=== PATIENT | female | born 1990 | race Hispanic/Latino ===

== ENCOUNTER 2019-08-16 08:11 | Emergency (ER) | payer BC, SELFPAY ==
--- NOTE | 2019-08-16 08:52 | ER ---
Nurse's Notes [facility] Name: Lenore Caputo Age: 29 yrs Sex: Female : 1990 Arrival Date: 08/16/2019 Time: 08:12 Bed 6 Private MD: Diagnosis: Foreign Body to Left Auditory Meatus - resolved, Vomiting Presentation: 08/16 08:27 Presenting complaint: Patient states: "I was cleaning out my right ear this morning and hb the cotton came off the qtip and was stuck in my ear, then I felt short of breath and started coughing and then I threw up and the cotton came out my mouth." Now c/o headache, sore throat, and right ear pain 10/22. Transition of care: patient was not received from another setting of care. Onset of symptoms was August 16, 2019. Risk Assessment: Do you want to hurt yourself or someone else? Patient reports no desire to harm self or others. Initial Sepsis Screen: Does the patient meet any 2 criteria? No. Patient's initial sepsis screen is negative. Does the patient have a suspected source of infection? No. Patient's initial sepsis screen is negative. Care prior to arrival: None. 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 - Social history:: Smoking status: Patient/guardian denies using tobacco. - Ebola Screening: : No symptoms or risks identified at this time. Screenin:26 Abuse screen: Denies threats or abuse. Denies injuries from another. Nutritional sv screening: No deficits noted. Tuberculosis screening: No symptoms or risk factors identified. Fall Risk None identified. Assessment: 08:26 General: Appears in no apparent distress. uncomfortable, well groomed, well developed, sv Behavior is calm, cooperative, appropriate for age. Pain: Complains of pain in face and right ear and throat Pain began this morning Is continuous. Neuro: Level of Consciousness is awake, alert, obeys commands, Oriented to person, place, time, situation, Moves all extremities. Full function Gait is steady, Speech is normal. Respiratory: Airway is patent Respiratory effort is even, unlabored, Respiratory pattern is regular, symmetrical. GI: Abdomen is flat, Reports vomiting, after she vomited she noticed the cotton ball in her vomit that she had stuck in her right ear on accident. Derm: Skin is pink, warm \\T\\ dry. Musculoskeletal: Range of motion: intact in all extremities. Vital Signs: 08:29 BP 145 / 99; Pulse 72; Resp 16; Temp 98.3; Pulse Ox 99% on R/A; Weight 70.31 kg; Height hb 5 ft. (152.40 cm); Pain 3/10; 08:29 Body Mass Index 30.27 (70.31 kg, 152.40 cm) hb ED Course: 08:12 Patient arrived in ED. as 08:13 Woody Cain MD is Attending Physician. kdr 08:21 Lilian Ansari RN is Primary Nurse. sv 08:26 Arm band placed on Patient placed in an exam room, on a stretcher. sv 08:26 Patient has correct armband on for positive identification. Bed in low position. Call sv light in reach. Pulse ox on. NIBP on. Door closed. Head of bed elevated. 08:29 Triage completed. hb 08:38 ED physician to see patient. sv 08:44 Lilian Tinoco MD is Referral Physician. kdr 09:00 No provider procedures requiring assistance completed. Patient did not have IV access sv during this emergency room visit. Administered Medications: No medications were administered Outcome: 08:51 Discharge ordered by . kdr 09:01 Discharged to home ambulatory. sv 09:01 Condition: stable 09:01 Discharge instructions given to patient, Instructed on discharge instructions, follow up and referral plans. Demonstrated understanding of instructions, follow-up care. 09:01 Patient left the ED. sv Signatures: Lilian Ansari, FRANNIE KATHLEEN Woody Cain MD MD kdr Glory Mei Heather, RN RN hb
--- NOTE | 2019-08-16 08:52 | EDPHYS ---
Physician Documentation [facility] Name: Lenore Caputo Age: 29 yrs Sex: Female : 1990 Arrival Date: 08/16/2019 Time: 08:12 Bed 6 Private MD: ED Physician Woody Cain HPI: 08/16 08:55 This 29 yrs old Female presents to ER via Ambulatory with complaints of kdr Vomiting, Headache, Ear Pain. 08:56 The patient had put a Q-tip in her right ear and when she pulled it out the cotton tip kdr was missing and she felt that it remained in her ear. She then became nauseated and vomited with a small amount of blood in the emesis. She now has a slight right sided LAWRENCE but o/w feels fine. Onset: The symptoms/episode began/occurred suddenly, just prior to arrival. Severity of symptoms: At their worst the symptoms were mild in the emergency department the symptoms have improved moderately. The patient has not experienced similar symptoms in the past. The patient has not recently seen a physician. 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 - Social history:: Smoking status: Patient/guardian denies using tobacco. - Ebola Screening: : No symptoms or risks identified at this time. ROS: 08:56 Constitutional: Negative for fever, chills, and weight loss, Eyes: Negative for injury, kdr pain, redness, and discharge, Neck: Negative for injury, pain, and swelling, Cardiovascular: Negative for chest pain, palpitations, and edema, Respiratory: Negative for shortness of breath, cough, wheezing, and pleuritic chest pain, Back: Negative for injury and pain, : Negative for injury, bleeding, discharge, and swelling, MS/Extremity: Negative for injury and deformity, Skin: Negative for injury, rash, and discoloration, Neuro: Negative for headache, weakness, numbness, tingling, and seizure activity. Psych: Negative for depression, anxiety, suicide ideation, homicidal ideation, and hallucinations, Allergy/Immunology: Negative for hives, rash, and allergies, Endocrine: Negative for neck swelling, polydipsia, polyuria, polyphagia, and marked weight changes, Hematologic/Lymphatic: Negative for swollen nodes, abnormal bleeding, and unusual bruising. 08:56 Abdomen/GI: Positive for nausea, vomiting. 08:56 Neuro: Positive for headache, Right sided. Exam: 08:56 Constitutional: This is a well developed, well nourished patient who is awake, alert, kdr and in no acute distress. Head/Face: Normocephalic, atraumatic. Eyes: Pupils equal round and reactive to light, extra-ocular motions intact. Lids and lashes normal. Conjunctiva and sclera are non-icteric and not injected. Cornea within normal limits. Periorbital areas with no swelling, redness, or edema. ENT: Nares patent. No nasal discharge, no septal abnormalities noted. Tympanic membranes are normal and external auditory canals are clear. Oropharynx with no redness, swelling, or masses, exudates, or evidence of obstruction, uvula midline. Mucous membranes moist. Neck: Trachea midline, no thyromegaly or masses palpated, and no cervical lymphadenopathy. Supple, full range of motion without nuchal rigidity, or vertebral point tenderness. No Meningismus. Chest/axilla: Normal chest wall appearance and motion. Nontender with no deformity. No lesions are appreciated. Cardiovascular: Regular rate and rhythm with a normal S1 and S2. No gallops, murmurs, or rubs. Normal PMI, no JVD. No pulse deficits. Respiratory: Lungs have equal breath sounds bilaterally, clear to auscultation and percussion. No rales, rhonchi or wheezes noted. No increased work of breathing, no retractions or nasal flaring. Abdomen/GI: Soft, non-tender, with normal bowel sounds. No distension or tympany. No guarding or rebound. No evidence of tenderness throughout. Back: No spinal tenderness. No costovertebral tenderness. Full range of motion. Skin: Warm, dry with normal turgor. Normal color with no rashes, no lesions, and no evidence of cellulitis. MS/ Extremity: Pulses equal, no cyanosis. Neurovascular intact. Full, normal range of motion. Neuro: Awake and alert, GCS 15, oriented to person, place, time, and situation. Cranial nerves II-XII grossly intact. Motor strength 5/5 in all extremities. Sensory grossly intact. Cerebellar exam normal. Normal gait. Psych: Awake, alert, with orientation to person, place and time. Behavior, mood, and affect are within normal limits. Vital Signs: 08:29 BP 145 / 99; Pulse 72; Resp 16; Temp 98.3; Pulse Ox 99% on R/A; Weight 70.31 kg; Height hb 5 ft. (152.40 cm); Pain 3/10; 08:29 Body Mass Index 30.27 (70.31 kg, 152.40 cm) hb MDM: 08:51 Patient medically screened. kdr 08:56 Data reviewed: vital signs, nurses notes. Counseling: I had a detailed discussion with kdr the patient and/or guardian regarding: the historical points, exam findings, and any diagnostic results supporting the discharge/admit diagnosis, the need for outpatient follow up. Administered Medications: No medications were administered Disposition: 08/16/19 08:51 Discharged to Home. Impression: Foreign Body to Left Auditory Meatus - resolved, Vomiting. - Condition is Stable. - Discharge Instructions: Ear Foreign Body, [id number]. - Medication Reconciliation Form, Thank You Letter, Work release form form. - Follow up: Private Physician; When: 2 - 3 days; Reason: If symptoms return, Further diagnostic work-up, Recheck today's complaints, Continuance of care, Re-evaluation by your physician. Follow up: Lilian Tinoco MD; When: 2 - 3 days; Reason: If symptoms return, Further diagnostic work-up, Recheck today's complaints, Continuance of care, Re-evaluation by your physician. - Problem is new. - Symptoms are resolved. Signatures: Lilian Ansari, RN RN Woody Cain MD MD [facility] Lay Lomeli RN RN Corrections: (The following items were deleted from the chart) 09:01 08:51 08/16/2019 08:51 Discharged to Home. Impression: Foreign Body to Left Auditory sv Meatus - resolved, Vomiting. Condition is Stable. Forms are Medication Reconciliation Form, Thank You Letter, Antibiotic Education, Prescription Opioid Use. Follow up: Private Physician; When: 2 - 3 days; Reason: If symptoms return, Further diagnostic work-up, Recheck today's complaints, Continuance of care, Re-evaluation by your physician. Follow up: Lilian Tinoco; When: 2 - 3 days; Reason: If symptoms return, Further diagnostic work-up, Recheck today's complaints, Continuance of care, Re-evaluation by your physician. Problem is new. Symptoms are resolved. kdr
[2019-08-16 09:10] VITALS: BP 145/99; TEMP 98.3; O2SAT 99
== END 2019-08-16 09:01 | disposition home or self-care (01) ==
LOC: ER 08:11
DX: R11.2 Nausea with vomiting, unspecified (principal); R51 Headache
CPT/HCPCS: 99283

== ENCOUNTER 2020-08-13 23:34 | Emergency (ER) | payer SELFPAY ==
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
--- OUTSIDE RECORDS SUMMARY | 2020-08-13 23:37 | XMS REPORT | Summary of Care ---
:1990 Author Organization [facility] Address [address] [place] [id number] Care Team Providers Name Role Phone Pcp, Patient Does Not Have A Primary Care Provider +1-000-00 0-0000 Reason for Visit Reason Comments Letters Encounter Details Date Type Department Care Team Description 07/07/2020 Telephone [facility] Neurosurgery, Zachary Coley MD Letters [id number] [place] [address], [address] [place] [address] [place] [address] [phone] Allergies No Known Allergiesdocumented as of this [...] this encounter Miscellaneous Notes Telephone Encounter - Jazmín Watson FNP - 07/09/2020 9:35 AM CSTSpoke with patient, she is just needing letter stating that she can participate in community service. Patient was lost to follow up in clinic, now scheduled for 07/25. 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 CT cervical spine done 02/29/20. elephone Encounter - Zoe Hawk - 07/07/2020 9:24 AM CSTLenore Caputo is a 30 year old female Lenore Harshal poe requesting a letter needed for to do light work for her to be able to do community service . Patient request a call back to discuss [phone] documented in this encounter Plan of Treatment Date Type Specialty Care Team Description 07/25/2020 Office Visit Neurological Surgery Douglas Juares MD [address] [place] [address] Health Maintenance Due Date Last Done Comments VARICELLA VACCINES (1 of 2 - 2-dose 1992 childhood series) PNEUMOCOCCAL 0-64 YEARS COMBINED SERIES (1 1997 of 3 - PCV13) Depression Screening 2003 DTaP,Tdap,and Td Vaccines (1 - Tdap) 2010 PAP SMEAR 07/09/2012 07/09/2009, 05/20/2008 INFLUENZA VACCINE (#1) 2020 documented as of this encounter Implants Implanted Type Area Radio Broadcaster Device Shelf Model / Identifier Expiration Serial / Lot Date Quintex Hybrid Plate 1 Level 20mm PLATE N/A: Aesculap [id number] / Implanted: Qty: 1 on 01/10/2020 by Benoit Ramírez MD at [facility] Neck N/A / N/A Screw Semiconstrained 4.0x14mm Aesculap #[id number] - Sn/A SCREW N/A: Aesculap [id number] / Implanted: Qty: 4 on 01/10/2020 by Benoit Ramírez MD at [facility] Neck N/A / N/A Spacer Elemax Cortical Cancellous 6mm Rti Surgical Ref #[id number] - [id number] SPACER N/A: [employer] 03/15/2022 [id number] / Implanted: Qty: 1 on 01/10/2020 by Benoit Ramírez MD at [facility] Neck [id number] / [id number] documented as of this encounter Results Not on filedocumented in this encounter Advance Directives Name Relationship Healthcare Agent Relationship Co mmunication Lenore Olson [facility] Health Care Agent [phone] ( Mobile)
--- OUTSIDE RECORDS SUMMARY | 2020-08-13 23:37 | XMS REPORT | Summary of Care ---
:1990 Author [address] [facility] Address [address] [place] [address] Care Team Providers Name Role Phone Pcp, Patient Does Not Have A Primary Care Provider +1-000-00 0-0000 Reason for Referral MRI/CAT Scan (STAT) Status Reason Specialty Diagnoses / Referred By Referred To Procedures Contact Contact New Request Diagnostic Diagnoses Neck pain Fall, initial encounter Qing Guzmán, Radiology Procedures CT CERVICAL SPINE WO CONTRAST PAC [address] [place] [address] [place] [address] Reason for Visit Reason Comments Other "feels like passing out" Auth/Cert Status Reason Specialty Diagnoses / Referred By Referred To Procedures Contact Contact Emergency Medicine [facility] [address] [place] [address] Fax: Encounter Details Date Type Department Care Team Description 07/11/2020 Emergency [facility]-Emergency Qing Guzmán, PAC Dizziness (Primary Dx); Department [address] [place] [address] Neck pain; [address] [place] [address] 7 [phone] Fall, initial encounter Drive [phone] [place] [address] [phone] Allergies No Known Allergiesdocumented as of this [...] Assigned at Date Recorded Not on file COVID-19 Exposure Response Date Recorded In the last month, have you been in contact with No / Unsure 07/11/2020 5:02 PM COMMUNICATION CONSULTANT someone who was confirmed or suspected to have Coronavirus / COVID-19? documented as of this encounter Last Filed Vital Signs Vital Sign Reading Time Taken Comments Blood Pressure 133/97 07/11/2020 5:19 PM COMMUNICATION CONSULTANT Pulse 110 07/11/2020 5:19 PM COMMUNICATION CONSULTANT Temperature 36.6 C (97.9 F) 07/11/2020 5:19 PM COMMUNICATION CONSULTANT Respiratory Rate 20 07/11/2020 5:19 PM COMMUNICATION CONSULTANT Oxygen Saturation 100% 07/11/2020 5:19 PM COMMUNICATION CONSULTANT Inhaled Oxygen Concentration - - Weight 65.8 kg (145 lb) 07/11/2020 5:19 PM COMMUNICATION CONSULTANT Height - - Body Mass Index 29.29 01/07/2020 9:55 PM CDT documented in this encounter Discharge Instructions InstructionsQing Guzmán, PAC - 07/11/2020DIAGNOSIS 1. Dizziness 2. Neck pain NO LIFE-THREATENING FINDINGS ON TODAY'S EXAM. PROCEDURES IN THE ER TODAY: none MEDICATIONS ADMINISTERED IN THE ER TODAY: none YOUR PRESCRIPTIONS AND [id number] MEDICATION RECOMMENDATIONS: none SPECIAL CARE INSTRUCTIONS: Follow up with your neurosurgeon as scheduled for your neck. Avoid caffeine, and drink plenty of clear liquids. Take Tylenol or ibuprofen as needed for muscle soreness. Make an appointment to follow upwith a primary care physician or [facility] for evaluation and treatment of anxiety. Return to the ER if you have new symptoms or develop chest pain, shortness of breath, loss of consciousness or otherconcerning symptoms that you feel like need to be evaluated immediately. FOLLOW-UP RECOMMENDATIONS: RECOMMEND FOLLOW-UP WITH A PRIMARY CARE PROVIDER OR SPECIALIST IN 2-5 DAYS, ESPECIALLY IF NO IMPROVEMENT IN SYMPTOMS. TO FOLLOW-UP WITHIN THE [facility], TRY THESE OPTIONS (CLINIC APPOINTMENTS AVAILABLE ON [id number] BASIS): 1. SCHEDULE AN APPOINTMENT ONLINE AT [email or web address] 2. OR CALL THE [facility]ESS [facility] AT OR 3. OR CALL YOUR [facility] PHYSICIAN'S OFFICE DIRECTLY IF YOU ARE ALREADY AN ESTABLISHED [facility] PATIENT. OR, YOU MAY FOLLOW-UP WITH A PROVIDER OF YOUR CHOICE, SUCH : 1. A PHYSICIAN OF YOUR CHOICE 2. [facility], . LOCATIONS IN [facility] 3. [facility], [address], [place]; [phone] RETURN TO ER FOR WORSENING OF SYMPTOMS. AttachmentsThe following attachments cannot be sent through Care Everywhere. Dizziness, Uncertain Cause (Montserratian)documented in this encounter ED Notes Estrella Cruz RN - 07/11/2020 5:17 PM CSTPatient arrived via [facility] with c/o "feeling like I'm going to pass out" Patient goes on to state "I know I have anxiety but this feels different." Qing Currie PAC - 07/11/2020 5:01 PM COMMUNICATION CONSULTANT [facility] Emergency Department Note Patient Name: Lenore Caputo Date of : 1990 30 year old female Treatment Room: [facility] Primary Care Physician: PATIENT DOES NOT HAVE A PCP Patient Escorted by: Self [9] Mode of Arrival: Personal means [1] EMS Treatment Prior to ED Arrival: Travel and Exposure Screening: Symptoms Does patient have any of these symptoms?: (not recorded) Exposure Screening Has patient had contact with someone with a communicable disease in the last month?: (not recorded) Diseases exposed to:: (not recorded) Is Patient ?: (not recorded) Exposure Date: (not recorded) Chief Complaint: Chief Complaint Patient presents with Other "feels like passing out" History of Present Illness: HPI Past Medical History/Immunizations: No past medical history on file. Allergies: No Known Allergies Past Social History: Substance & Sexual Activity No substance use or sexual activity history on file. Past Surgical History: Past Surgical History: Procedure Laterality Date ANTERIOR CERVICAL FUSION N/A 01/10/2020 Surgeon: Zachary Juares MD; Location: [facility] Review of Systems: Review of Systems Physical Exam: ED Triage Vitals [07/11/20 1719] Weight 65.8 kg (145 lb) Actual or estimated Estimated by patient/family report Height BP (!) 133/97 Pulse 110 Resp 20 Temp 36.6 C (97.9 F) Temp source Oral SpO2 100 % Measured on Room air Physical Exam Radiology: Hospital Encounter on 07/11/20 CT CERVICAL SPINE WO CONTRAST Narrative EXAM: CT CERVICAL SPINE WO CONTRAST ORDERING PHYSICIAN: QING GUZMÁN HISTORY: Neck injury and pain. History of cervical spine fracture. COMPARISON: Report of examination 02/29/2020. Images not available for direct comparison. TECHNIQUE: CT of the cervical spine without IV contrast. Coronal and sagittal reformatted images were obtained. CT performed according to ALARA principles. FINDINGS: Visualization is from the skull base through T2 vertebral body. Anterior fusion at C6-7 with interbody spacer. Hardware appears intact. Again seen is lucency through the left C6 lamina and the inferior left C6 facet likely related to nonunited fractures given the chronicity. Subtle irregularity of the superior left C7 facet likely related to fracture described on previous examination. The left C7 transverse process fracture is not as well seen. Slight widening of the C6-7 facet joint is reportedly stable. The vertebral body height and alignment appear otherwise preserved. There is a reversal of the normal cervical lordosis. No acute cervical spine fracture identified. Disc space height is otherwise preserved. The prevertebral soft tissues are normal. The visualized lung apices are clear. Impression 1. No acute osseous injury in the cervical spine. 2. Stable postoperative changes of anterior fusion at C6-7. Hardware is intact. 3. Stable chronic appearing fractures at C6 and C7 as described. Lucencies in the C6 lamina and inferior C6 facet likely related to nonunited fractures given the chronicity. RL: 3303 End of Report Lab Results (24h): No results found for this or any previous visit (from the past 24 hour(s)). Orders and Treatments: Orders Placed This Encounter Procedures CT CERVICAL SPINE WO CONTRAST No orders of the defined types were placed in this encounter. ED COURSE MDM: Coding Scoring Tools: No data recorded Diagnosis/Impression: ICD-10-CM ICD-9-CM 1. Neck pain M54.2 723.1 2. Fall, initial encounter W19.XXXA E888.9 Disposition/Condition: ED Disposition None Discharge Medications: Patient's Medications START taking these medications No medications on file CONTINUE taking these medications which have NOT CHANGED CYCLOBENZAPRINE 5 MG TABLET Take 1 tablet by mouth 3 (three) times daily as needed for Muscle Spasms. START taking Modified Medications as Prescribed No medications on file STOP taking these medications No medications on file Follow-up: Electronically signed by: MYRIAM Arevalo 07/11/2020 8:42 PM UNICATION CONSULTANT documented in this encounter Miscellaneous Notes ED Nurse Note - Brianna Amaya RN - 07/11/2020 8:56 PM CSTPatient provided discharge instructions, AVS, Return precautions, and told to follow-up with PCP. Patient verbalized understanding of discharge instructions and ambulated out of ED in no acute distress. documented in this encounter Plan of Treatment Date Type Specialty Care Team Description 07/25/2020 Office Visit Neurological Surgery Douglas Juares MD [address] [place] [address] [phone] Health Maintenance Due Date Last Done Comments VARICELLA VACCINES (1 of 2 - 2-dose 1992 childhood series) PNEUMOCOCCAL 0-64 YEARS COMBINED SERIES (1 1997 of 3 - PCV13) Depression Screening 2003 DTaP,Tdap,and Td Vaccines (1 - Tdap) 2010 PAP SMEAR 07/09/2012 07/09/2009, 05/20/2008 INFLUENZA VACCINE (#1) 2020 documented as of this encounter Implants Implanted Type Area Radiologic Technician Device Shelf Model / Identifier Expiration Serial / Lot Date Quintex Hybrid Plate 1 Level 20mm PLATE N/A: Aesculap [id number] / Implanted: Qty: 1 on 01/10/2020 by Benoit Ramírez MD at [facility] Neck N/A / N/A Screw Semiconstrained 4.0x14mm Aesculap #[id number] - Sn/A SCREW N/A: Aesculap [id number] / Implanted: Qty: 4 on 01/10/2020 by Benoit Ramírez MD at [facility] Neck N/A / N/A Spacer Elemax Cortical Cancellous 6mm Rti Surgical Ref #[id number] - [id number] SPACER N/A: [employer] 03/15/2022 [id number] / Implanted: Qty: 1 on 01/10/2020 by Benoit Ramírez MD at [facility] Neck [id number] / [id number] documented as of this encounter Procedures Procedure Name Priority Date/Time Associated Diagnosis Comme nts CT CERVICAL SPINE STAT 07/11/2020 7:20 PM Neck pain Results for this WO CONTRAST COMMUNICATION CONSULTANT Fall, initial procedure are in encounter the results section. NOTICE OF PRIVACY Routine 07/11/2020 5:01 PM PRACTICES COMMUNICATION CONSULTANT documented in this encounter Results CT CERVICAL SPINE WO CONTRAST (07/11/2020 7:20 PM COMMUNICATION CONSULTANT) Specimen Impressions Performed At 1. No acute osseous injury in the cerv ical spine. PACS/VR/DOSE 2. Stable postoperative changes of anter ior fusion at C6-7. Hardware is intact. 3. Stable chronic appearing fractures at C6 and C7 as described. Lucencies in the C6 lamina and inferior C6 facet l ikely related to nonunited fractures given the chronicity. RL: 3301 End of Report Electronically signed by Amarjit Law MD at 8:27 PM Narrative Performed At EXAM: CT CERVICAL SPINE WO CONTRAST PACS/VR/DOSE ORDERING PHYSICIAN: QING GUZMÁN HISTORY: Neck injury and pain. History o f cervical spine fracture. COMPARISON: Report of examination 020. Images not available for direct comparison. TECHNIQUE: CT of the cervical spine with out IV contrast. Coronal and sagittal reformatted images were obtained. CT performe d according to ALARA principles. FINDINGS: Visualization is from the skull base thr ough T2 vertebral body. Anterior fusion at C6-7 with interbody spacer. Hardware appears intact. Again seen is lucency through the left C6 lamina and the inferior left C6 facet likely related to nonunited fractures given the chronicity. S ubtle irregularity of the superior left C7 facet likely related to fracture described on previous examination. The left C7 transverse process fracture i s not as well seen. Slight widening of the C6-7 facet joint is reportedly stable. The vertebral body height and alignment appear otherwi se preserved. There is a reversal of the normal cervical gabriele dosis. No acute cervical spine fracture identified. Disc space heigh t is otherwise preserved. The prevertebral soft tissues are normal . The visualized lung apices are clear. Procedure Note [facility], Radiant Results Inft User - 2019 8:28 PM COMMUNICATION CONSULTANT EXAM: CT CERVICAL SPINE WO CONTRAST ORDERING PHYSICIAN: QING GUZMÁN HISTORY: Neck injury and pain. History o f cervical spine fracture. COMPARISON: Report of examination 020. Images not available for direct comparison. TECHNIQUE: CT of the cervical spine with out IV contrast. Coronal and sagittal reformatted images were obtaine d. CT performed according to ALARA principles. FINDINGS: Visualization is from the skull base thr ough T2 vertebral body. Anterior fusion at C6-7 with interbody spacer. Sanchez rdware appears intact. Again seen is lucency through the left C6 lamina an d the inferior left C6 facet likely related to nonunited fractures given the chronicity. Subtle irregularity of the superior left C7 facet likely relate d to fracture described on previous examination. The left C7 transverse proc ess fracture is not as well seen. Slight widening of the C6-7 facet joint is reportedly stable. The vertebral body height and alignment appear otherwise preserved. There is a reversal of the normal cervical gabriele dosis. No acute cervical spine fracture identified. Disc space height is otherwise preserved. The prevertebral soft tissues are normal . The visualized lung apices are clear. IMPRESSION 1. No acute osseous injury in the cervi vaishnavi spine. 2. Stable postoperative changes of anter ior fusion at C6-7. Hardware is intact. 3. Stable chronic appearing fractures at C6 and C7 as described. Lucencies in the C6 lamina and inferior C6 facet l ikely related to nonunited fractures given the chronicity. RL: 1234 End of Report Performing Organization Address City/State/Zipcode Phone Number PACS/VR/DOSE documented in this encounter Visit Diagnoses Diagnosis Dizziness - Primary Dizziness and giddiness Neck pain Cervicalgia Fall, initial encounter documented in this encounter Advance Directives Name Relationship Healthcare Agent Relationship Co mmunication Lenore Olson Mother Health Care Agent [phone] ( Mobile)
--- OUTSIDE RECORDS SUMMARY | 2020-08-13 23:37 | XMS REPORT | Continuity of Care Document ---
:1990 Author Organization [facility] t Address [address] [place] [address] [address] [place] [address] Care Team Providers Name Role Phone Mattie White Attending Clinician Doctor Unassigned, Name Attending Clinician Unavailable Blanquita CM Attending Clinician Problems This patient has no known problems. Allergies, Adverse Reactions, Alerts This patient has no known allergies or adverse reactions. Medications This patient has no known medications. Procedures This patient has no known procedures. Encounters Start End Encounter Admission Attending Care Care Encounter Source Date/Time Date/Time Type Type Clinicians Facility Department ID 2020-07-11 2020-07-11 Emergency MANDY Lopes [id number] 17:20:00 20:56:00 Qing Abbott [id number] [place] [id number] [place] [id number] 2020-07-11 2020-07-11 Orders Doctor DENISE [id number] 00:00:00 00:00:00 Only UnassignedTONIA [id number] [place] [facility] [id number] 2020-07-07 2020-07-07 Telephone MANDY Juares [id number] 00:00:00 00:00:00 [facility] [id number] [place] [id number] [place] [id number] [facility] 2020-06-05 2020-06-05 Telephone MANDY Juares [id number] 00:00:00 00:00:00 [facility] [id number] [place] [id number] [place] [phone] Medical [facility] Results This patient has no known results.
--- OUTSIDE RECORDS SUMMARY | 2020-08-13 23:37 | XMS REPORT | Summary of Care ---
:1990 Author Organization [facility] Address [address] [place] [address] Care Team Providers Name Role Phone Pcp, Patient Does Not Have A Primary Care Provider +1-000-00 0-0000 Reason for Visit Reason Comments Forms Notification Closing Encounter Encounter Details Date Type Department Care Team Description 06/05/2020 Telephone [facility] Zachary Juares, Forms; Notif ication Neurosurgery, Cristy CM (Closing Encounter) [address], [facility] [address] [place] [address] [phone] Allergies No Known Allergiesdocumented as of this [...] with No / Unsure 07/11/2020 5:02 PM LAW OFFICE MANAGER someone who was confirmed or suspected to have Coronavirus / COVID-19? documented as of this encounter Last Filed Vital Signs Not on filedocumented in this encounter Miscellaneous Notes Telephone Encounter - Staci Caldera RN - 07/11/2020 11:40 PM CSTAccess Center: [facility] Open Encounter Maintenance Chart Review: please see encounter from 07/07/2020. Nurse Note: RN closing encounter in [facility] r/t clinical action items completed. Staci Caldera RN [facility] Access Center Triage Nurse elephone Encounter - Staci Cardona RN - 06/05/2020 3:51 PM CDTPlease send to the appropriate nurse pool. Dr. Juares is NEUROSURGERY, thank you. elephone Encounter - Sukhwinder Weaver - 06/05/2020 10:41 AM CDLALIbabs Caputo is a 29 year old female is requesting call back regarding letter needed for Probationofficer please contact documented in this encounter Plan of Treatment Date Type Specialty Care Team Description 07/25/2020 Office Visit Neurological Surgery Douglas Juares MD [address] [place] [address] Health Maintenance Due Date Last Done Comments VARICELLA VACCINES (1 of 2 - 2-dose 1992 childhood series) PNEUMOCOCCAL 0-64 YEARS COMBINED SERIES (1 1997 of 3 - PCV13) Depression Screening 2003 DTaP,Tdap,and Td Vaccines (1 - Tdap) 2010 PAP SMEAR 07/09/2012 07/09/2009, 05/20/2008 INFLUENZA VACCINE (#1) 2020 documented as of this encounter Implants Implanted Type Area Bit Sander Device Shelf Model / Identifier Expiration Serial / Lot Date Quintex Hybrid Plate 1 Level 20mm PLATE N/A: A[employer] [id number] / Implanted: Qty: 1 on 01/10/2020 by Benoit Ramírez MD at [facility] Neck N/A / N/A Screw Semiconstrained 4.0x14mm Aesculap #[id number] - Sn/A SCREW N/A: A[employer] [id number] / Implanted: Qty: 4 on 01/10/2020 by Benoit Ramírez MD at [facility] Neck N/A / N/A Spacer Elemax Cortical Cancellous 6mm Rti Surgical Ref #[id number] - [id number] SPACER N/A: [employer] 03/15/2022 [id number] / Implanted: Qty: 1 on 01/10/2020 by Benoit Ramírez MD at [facility] Neck [id number] / [id number] documented as of this encounter Results Not on filedocumented in this encounter Advance Directives Name Relationship Healthcare Agent Relationship Co mmunication Lenore Olson [facility] Health Care Agent [phone] ( Mobile)
[2020-08-14 02:55] LABS: Urine Blood 2+ (NEG); Urine Glucose NEGATIVE (NEG); Urine Protein TRACE (NEG); Urine Specific Gravity >1.030 (1.005-1.030); Urine pH 6.5 (5.0-7.0)
[2020-08-14 03:58] LABS: Absolute Lymphocytes (CBC) 4.5 K/uL (0.7-4.9); Basophils % 0.7 % (0-1.3); Hematocrit 30.3 % (36.0-45.0); MPV 9.8 fL (7.6-11.3); RBC Red Blood Cell Count 3.35 M/uL (3.86-4.86)
[2020-08-14 04:00] LABS: Protime INR 0.97
[2020-08-14 04:16] LABS: BUN Blood Urea Nitrogen 15 mg/dL (7-18); Bicarbonate 28 mmol/L (21-32); Glucose Level 85 mg/dL (74-106); Potassium 3.7 mmol/L (3.5-5.1); Sodium Level 139 mmol/L (136-145)
--- NOTE | 2020-08-14 04:26 | EDPHYS ---
Physician Documentation [facility] Name: Lenore Caputo Age: 30 yrs Sex: Female : 1990 Arrival Date: 08/13/2020 Time: 23:38 Bed 13 Private MD: ED Physician Simeon Nash HPI: 08/14 02:30 This 30 yrs old Female presents to ER via Ambulatory with complaints of mh7 Vaginal Bleeding, Shortness Of Breath, Chest Pain, BLEEDING FOR 2 MONTHS. 02:30 The patient presents with vaginal bleeding that is moderate. Onset: The mh7 symptoms/episode began/occurred 2 month(s) ago. Modifying factors: The symptoms are alleviated by nothing, the symptoms are aggravated by nothing. Associated signs and symptoms: Pertinent negatives: constipation, cramping, diarrhea, dyspareunia, dysuria, fever, hematuria, nausea, urinary frequency, vaginal discharge, vomiting. Severity of symptoms: At their worst the symptoms were moderate, 7 day(s) ago, in the emergency department the symptoms are unchanged. OSTOMY RN: 02:35 3, Full Term 0, Premature 0, 3, Living 0 mh7 Historical: - Allergies: 00:21 No Known Allergies; ss - Home Meds: 00:21 None [Active]; ss - PMHx: 00:21 None; ss - PSHx: 00:21 C spine repair; D \T\ C; ss - Immunization history:: Adult Immunizations up to date. - Social history:: Smoking status: Reported history of juuling and/or vaping. ROS: 02:35 Constitutional: Negative for fever, chills, and weight loss, Eyes: Negative for injury, mh7 pain, redness, and discharge, ENT: Negative for injury, pain, and discharge, Neck: Negative for injury, pain, and swelling, Abdomen/GI: Negative for abdominal pain, nausea, vomiting, diarrhea, and constipation, Back: Negative for injury and pain, MS/Extremity: Negative for injury and deformity, Skin: Negative for injury, rash, and discoloration, Neuro: Negative for headache, weakness, numbness, tingling, and seizure, Psych: Negative for depression, anxiety, suicide ideation, homicidal ideation, and hallucinations, Allergy/Immunology: Negative for hives, rash, and allergies, Endocrine: Negative for neck swelling, polydipsia, polyuria, polyphagia, and marked weight changes, Hematologic/Lymphatic: Negative for swollen nodes, abnormal bleeding, and unusual bruising. Exam: 02:35 Constitutional: This is a well developed, well nourished patient who is awake, alert, mh7 and in no acute distress. Head/Face: Normocephalic, atraumatic. Eyes: Pupils equal round and reactive to light, extra-ocular motions intact. Lids and lashes normal. Conjunctiva and sclera are non-icteric and not injected. Cornea within normal limits. Periorbital areas with no swelling, redness, or edema. Neck: Trachea midline, no thyromegaly or masses palpated, and no cervical lymphadenopathy. Supple, full range of motion without nuchal rigidity, or vertebral point tenderness. No Meningismus. Chest/axilla: Normal chest wall appearance and motion. Nontender with no deformity. No lesions are appreciated. Cardiovascular: Regular rate and rhythm with a normal S1 and S2. No gallops, murmurs, or rubs. Normal PMI, no JVD. No pulse deficits. Respiratory: Lungs have equal breath sounds bilaterally, clear to auscultation and percussion. No rales, rhonchi or wheezes noted. No increased work of breathing, no retractions or nasal flaring. Abdomen/GI: Soft, non-tender, with normal bowel sounds. No distension or tympany. No guarding or rebound. No evidence of tenderness throughout. Back: No spinal tenderness. No costovertebral tenderness. Full range of motion. Skin: Warm, dry with normal turgor. Normal color with no rashes, no lesions, and no evidence of cellulitis. MS/ Extremity: Pulses equal, no cyanosis. Neurovascular intact. Full, normal range of motion. Neuro: Awake and alert, GCS 15, oriented to person, place, time, and situation. Cranial nerves II-XII grossly intact. Motor strength 5/5 in all extremities. Sensory grossly intact. Cerebellar exam normal. Normal gait. Psych: Awake, alert, with orientation to person, place and time. Behavior, mood, and affect are within normal limits. 04:22 : CVA tenderness, is absent, Pelvic Exam: External exam: is normal, Speculum exam: mh7 mild bleeding, blood clots in vaginal vault, no cervicitis, os that is closed, no tissue in cervix is seen, no tissue in vagina is seen, bimanual exam reveals no cervical motion tenderness, os that is closed, normal sized uterus, no uterine tenderness, no adnexa tenderness or masses bilaterally, discharge, is not appreciated, the nurse was present for the exam, Bladder: is normal, Rectal exam: is refused by patient or guardian. Vital Signs: 00:19 BP 121 / 90; Pulse 105; Resp 17; Temp 97.6(TE); Pulse Ox 99% on R/A; Weight 63.5 kg; ss Height 4 ft. 11 in. (149.86 cm); Pain 0/10; 00:19 Body Mass Index 28.28 (63.50 kg, 149.86 cm) ss MDM: 04:22 Differential diagnosis: dysmenorrhea, menometrorrhagia, menorrhea, urinary tract mh7 infection. Data reviewed: vital signs, nurses notes, lab test result(s), CBC, electrolytes, urinalysis. Data interpreted: Pulse oximetry: on room air is 99 %. Interpretation: normal. Counseling: I had a detailed discussion with the patient and/or guardian regarding: the historical points, exam findings, and any diagnostic results supporting the discharge/admit diagnosis, lab results, the need for outpatient follow up, an OB/Gyne specialist, to return to the emergency department if symptoms worsen or persist or if there are any questions or concerns that arise at home. Response to treatment: the patient's symptoms have markedly improved after treatment. 04:26 Patient medically screened. [facility] 08/14 02:26 Order name: Abo/rh Typing [facility] 08/14 02:26 Order name: Basic Metabolic Panel; Complete Time: 04:21 [facility] 08/14 02:26 Order name: CBC with Diff; Complete Time: 04:03 [facility] 08/14 02:27 Order name: Urine --Ancillary (enter results); Complete Time: 03:08 tt3 08/14 02:27 Order name: Urine Dipstick--Ancillary (enter results); Complete Time: 03:08 08/14 02:37 Order name: Protime (+inr); Complete Time: 04:09 [facility] 08/14 02:26 Order name: IV Saline Lock; Complete Time: 03:33 [facility] 08/14 02:26 Order name: Labs collected and sent; Complete Time: 03:33 mh7 08/14 02:26 Order name: NPO; Complete Time: 03:33 mh7 08/14 02:26 Order name: Urine Dipstick-Ancillary (obtain specimen); Complete Time: 02:27 mh7 08/14 02:27 Order name: Urine Test (obtain specimen); Complete Time: 02:27 tt3 08/14 02:36 Order name: EKG - Nurse/Tech; Complete Time: 03:33 mh7 08/14 02:37 Order name: Ptt, Activated; Complete Time: 04:09 mh7 Administered Medications: No medications were administered Disposition: 08/14/20 04:26 Discharged to Home. Impression: Vaginal Bleeding. - Condition is Stable. - Discharge Instructions: Metrorrhagia, [id number]. - Medication Reconciliation Form, Thank You Letter, Antibiotic Education, Prescription Opioid Use form. - Follow up: Private Physician; When: 1 - 2 days; Reason: Worsening of condition, Recheck today's complaints, Continuance of care, Re-evaluation by your physician. Follow up: Alysa Gonzalez MD; When: 1 - 2 days; Reason: Worsening of condition, Further diagnostic work-up, Recheck today's complaints. - Problem is an ongoing problem. - Symptoms have improved. Signatures: Dispatcher [employer] EDMS Turner Billy RN RN sg Smirch, Shelby, RN RN ss Simeon Nash MD MD [facility] Claudio Ordoñez tt3 Corrections: (The following items were deleted from the chart) 02: 02:27 Urine Dipstick-Ancillary ordered. tt3 tt3 05:00 04:26 08/14/2020 04:26 Discharged to Home. Impression: Vaginal Bleeding. Condition is sg Stable. Forms are Medication Reconciliation Form, Thank You Letter, Antibiotic Education, Prescription Opioid Use. Follow up: Private Physician; When: 1 - 2 days; Reason: Worsening of condition, Recheck today's complaints, Continuance of care, Re-evaluation by your physician. Follow up: Alysa Gonzalez; When: 1 - 2 days; Reason: Worsening of condition, Further diagnostic work-up, Recheck today's complaints. Problem is an ongoing problem. Symptoms have improved. mh7
--- NOTE | 2020-08-14 04:26 | ER ---
Nurse's Notes [facility] Name: Lenore Caputo Age: 30 yrs Sex: Female : 1990 Arrival Date: 08/13/2020 Time: 23:38 Bed 13 Private MD: Diagnosis: Vaginal Bleeding Presentation: 08/14 00:19 Chief complaint: Patient states: Vaginal bleeding x 2 months. HX of irregular periods. ss Pt now c/o fatigue and SOB with exertion. Coronavirus screen: Client denies travel out of the [place] in the last 14 days. fatigue, muscle pain, Client presents with at least one sign or symptom that may indicate coronavirus-19. Standard/surgical mask placed on the client. Ebola Screen: Patient denies exposure to infectious person. Patient denies travel to an Ebola-affected area in the 21 days before illness onset. Initial Sepsis Screen: Does the patient meet any 2 criteria? HR > 90 bpm. Does the patient have a suspected source of infection? No. Patient's initial sepsis screen is negative. Risk Assessment: Do you want to hurt yourself or someone else? Patient reports no desire to harm self or others. Onset of symptoms was June 15, 2020. 00:19 Method Of Arrival: Ambulatory ss 00:19 Acuity: MARISSA 3 ss ORDER TAKER: 02:35 3, Full Term 0, Premature 0, 3, Living 0 mh7 Historical: - Allergies: 00:21 No Known Allergies; ss - Home Meds: 00:21 None [Active]; - PMHx: 00:21 None; - PSHx: 00:21 C spine repair; D \T\ C; ss - Immunization history:: Adult Immunizations up to date. - Social history:: Smoking status: Reported history of juuling and/or vaping. Vital Signs: 00:19 BP 121 / 90; Pulse 105; Resp 17; Temp 97.6(TE); Pulse Ox 99% on R/A; Weight 63.5 kg; ss Height 4 ft. 11 in. (149.86 cm); Pain 0/10; 00:19 Body Mass Index 28.28 (63.50 kg, 149.86 cm) ED Course: 08/13 23:38 Patient arrived in ED. cl3 08/14 00:21 Triage completed. ss 00:21 Arm band placed on right wrist. 02:10 Simeon Nash MD is Attending Physician. [facility] 03:33 Inserted saline lock: 20 gauge in left antecubital area, using aseptic technique. Blood ds4 collected. Missed attempt(s): 20 gauge in right wrist. Bleeding controlled, band aid applied, catheter tip intact. 04:25 Alysa Gonzalez MD is Referral Physician. 7 Administered Medications: No medications were administered Outcome: 04:26 Discharge ordered by . 7 05:00 Patient left the ED. sg Signatures: Turner Billy RN RN Trina Almendarez RN RN Nick Arguello ds4 Razia Zheng cl3 Simeon Nash MD MD [facility] Corrections: (The following items were deleted from the chart) 00:22 00:19 Coronavirus screen: Client denies travel out of the [place] in the last 14 days. ss
[2020-08-14 05:05] VITALS: BP 121/90; TEMP 97.6; O2SAT 99
--- NOTE | 2020-08-15 16:11 | EKG ---
Test Date: 2020-08-14 Test Time: 03:09:23 Hat Checker: JAYLENE MEASUREMENT RESULTS: Intervals: Rate: 70 NM: 184 QRSD: 86 QT: 390 QTc: 421 [place]: P: 16 NM: 184 QRS: 11 T: 1 INTERPRETIVE STATEMENTS: Normal sinus rhythm Normal ECG No previous ECG available for comparison Electronically Signed On 08-15-20 16:09:35 INTERNAL WHOLESALER by Jason Perez
== END 2020-08-14 05:00 | disposition home or self-care (01) ==
LOC: ER 23:34
DX: N93.9 Abnormal uterine and vaginal bleeding, unspecified (principal)
CPT/HCPCS: 36415; 80048; 81003; 81025; 85025; 85610; 85730; 86900; 86901; 93005; 99283

== ENCOUNTER 2021-05-15 15:18 | Emergency (ER) | payer SELFPAY ==
[2021-05-15 17:35] LABS: Absolute Lymphocytes (CBC) 2.2 K/uL (0.7-4.9); Basophils % 0.7 % (0-1.3); Hematocrit 34.2 % (36.0-45.0); Lymphocytes % 19.6 % (15.3-44.8)
[2021-05-15 17:36] LABS: Protime INR 1.03
--- NOTE | 2021-05-15 17:47 | RAD REPORT ---
EXAM DESCRIPTION: RAD - Chest Single View - 05/15/2021 5:41 pm CLINICAL HISTORY: CHEST PAIN Chest pain. COMPARISON: No comparisons FINDINGS: Portable technique limits examination quality. The lungs are grossly clear. The heart is normal in size. No displaced fractures. IMPRESSION: No acute intrathoracic process suspected.
[2021-05-15 18:06] LABS: ALT/SGPT 31 U/L (12-78); AST/SGOT 15 U/L (15-37); Albumin 3.9 g/dL (3.4-5.0); Alkaline Phosphatase 98 U/L (45-117); BUN Blood Urea Nitrogen 13 mg/dL (7-18); Bicarbonate 28 mmol/L (21-32); Bilirubin Direct < 0.1 mg/dL (0-0.2); Bilirubin Total 0.4 mg/dL (0.2-1.0); Glucose Level 96 mg/dL (74-106); Magnesium 1.9 mg/dL (1.8-2.4); NT PRO-BNP 12 pg/mL (<125); Potassium 3.6 mmol/L (3.5-5.1); Sodium Level 141 mmol/L (136-145); Thyroid Stimulating Hormone 0.966 uIU/mL (0.360-3.740); Troponin (Emerg Dept Use Only) < 0.02 ng/mL (0.0-0.045)
--- NOTE | 2021-05-15 18:14 | EDPHYS ---
Physician Documentation [facility] Name: Lenore Caputo Age: 30 yrs Sex: Female : 1990 Arrival Date: 05/15/2021 Time: 15:20 Bed 13 Private MD: ED Physician Danie Bolivar HPI: 05/15 17:31 This 30 yrs old Female presents to ER via Wheelchair with complaints of Chest jr8 Pain/shortness of breath. 17:31 The patient has shortness of breath at rest, with light activity. Onset: The jr8 symptoms/episode began/occurred gradually, 1 week(s) ago, and became persistent. Duration: The symptoms are continuous, and are unchanged since they started. Associated signs and symptoms: Pertinent positives: chest pain, non-productive cough, dizziness, numbness in extremities. Severity of symptoms: At their worst the symptoms were moderate in the emergency department the symptoms are unchanged. The patient has not experienced similar symptoms in the past. The patient has not recently seen a physician. Historical: - Allergies: 15:26 No Known Allergies; ll1 - PMHx: 15:26 None; ll1 - PSHx: 15:26 neck fusion; D\\T\\C; ll1 - Immunization history:: Adult Immunizations up to date. - Social history:: Smoking status: Patient denies any tobacco usage or history of. ROS: 17:31 Eyes: Negative for injury, pain, redness, and discharge, ENT: Negative for injury, jr8 pain, and discharge, Neck: Negative for injury, pain, and swelling, Abdomen/GI: Negative for abdominal pain, nausea, vomiting, diarrhea, and constipation, Back: Negative for injury and pain, MS/Extremity: Negative for injury and deformity, Skin: Negative for injury, rash, and discoloration. 17:31 Cardiovascular: Positive for chest pain, Negative for edema, orthopnea, palpitations, paroxysmal nocturnal dyspnea. 17:31 Respiratory: Positive for cough, dyspnea on exertion, shortness of breath. 17:31 Neuro: Positive for dizziness. Exam: 17:31 Eyes: Pupils equal round and reactive to light, extra-ocular motions intact. Lids and jr8 lashes normal. Conjunctiva and sclera are non-icteric and not injected. Cornea within normal limits. Periorbital areas with no swelling, redness, or edema. ENT: Nares patent. No nasal discharge, no septal abnormalities noted. Tympanic membranes are normal and external auditory canals are clear. Oropharynx with no redness, swelling, or masses, exudates, or evidence of obstruction, uvula midline. Mucous membranes moist. Neck: Trachea midline, no thyromegaly or masses palpated, and no cervical lymphadenopathy. Supple, full range of motion without nuchal rigidity, or vertebral point tenderness. No Meningismus. Cardiovascular: Regular rate and rhythm with a normal S1 and S2. No gallops, murmurs, or rubs. Normal PMI, no JVD. No pulse deficits. Respiratory: Lungs have equal breath sounds bilaterally, clear to auscultation and percussion. No rales, rhonchi or wheezes noted. No increased work of breathing, no retractions or nasal flaring. Abdomen/GI: Soft, non-tender, with normal bowel sounds. No distension or tympany. No guarding or rebound. No evidence of tenderness throughout. Back: No spinal tenderness. No costovertebral tenderness. Full range of motion. Skin: Warm, dry with normal turgor. Normal color with no rashes, no lesions, and no evidence of cellulitis. MS/ Extremity: Pulses equal, no cyanosis. Neurovascular intact. Full, normal range of motion. Neuro: Awake and alert, GCS 15, oriented to person, place, time, and situation. Cranial nerves II-XII grossly intact. Motor strength 5/5 in all extremities. Sensory grossly intact. Cerebellar exam normal. Normal gait. Vital Signs: 15:23 Resp 17; Weight 65.32 kg; Height 4 ft. 11 in. (149.86 cm); Pain 6/10; ll1 15:28 BP 125 / 83; Pulse 80; Resp 18; Temp 97.3; Pulse Ox 100% ; ll1 17:13 BP 110 / 79; Pulse 70; Resp 18; Temp 97.3; Pulse Ox 100% on R/A; aj2 15:23 Body Mass Index 29.08 (65.32 kg, 149.86 cm) ll1 MDM: 16:48 Patient medically screened. jr8 17:31 Data reviewed: vital signs, nurses notes, lab test result(s), EKG, radiologic studies, jr8 plain films. Data interpreted: Pulse oximetry: on room air is 100 %. Interpretation: normal. Counseling: I had a detailed discussion with the patient and/or guardian regarding: the historical points, exam findings, and any diagnostic results supporting the discharge/admit diagnosis, lab results, radiology results. 18:12 ED course: Discussed with patient that she is hemodynamically stable. No acute lab [facility] findings, EKG findings, or chest x-ray findings. Recommended following up with PCP for the time being. Still needs to follow-up for MRI for her possible pituitary adenoma as well. If she were to feel worse at any point time to come back for further reevaluation.. 05/15 16:59 Order name: Basic Metabolic Panel 8 05/15 16:59 Order name: CBC with Diff jr8 05/15 16:59 Order name: LFT's [facility] 05/15 16:59 Order name: Magnesium [facility] 05/15 16:59 Order name: NT PRO-BNP [facility] 05/15 16:59 Order name: PT-INR; Complete Time: 18:12 [facility] 05/15 16:59 Order name: Troponin (emerg Dept Use Only); Complete Time: 18:12 8 05/15 16:59 Order name: TSH; Complete Time: 18:12 8 05/15 17:00 Order name: Basic Metabolic Panel; Complete Time: 18:12 EDMS 05/15 17:00 Order name: CBC with Automated Diff; Complete Time: 18:12 EDMS 05/15 17:00 Order name: Liver (Hepatic) Function; Complete Time: 18:12 EDMS 05/15 17:00 Order name: Magnesium; Complete Time: 18:12 EDME 05/15 17:00 Order name: NT PRO-BNP; Complete Time: 18:12 EDMS 05/15 18:25 Order name: COVID-19 : Document "Date of Symptom Onset" if Symptomatic. [facility] 05/15 15:27 Order name: EKG; Complete Time: 15:28 1 05/15 15:27 Order name: EKG - Nurse/Tech; Complete Time: 15:28 1 05/15 16:59 Order name: XRAY Chest (1 view); Complete Time: 18:12 8 05/15 16:59 Order name: Cardiac monitoring; Complete Time: 17:29 8 05/15 16:59 Order name: IV Saline Lock; Complete Time: 17:29 8 05/15 16:59 Order name: Labs collected and sent; Complete Time: 17:29 jr8 05/15 16:59 Order name: O2 Per Protocol; Complete Time: 17: jr8 05/15 16:59 Order name: O2 Sat Monitoring; Complete Time: 17:29 jr8 05/15 19:45 Order name: SARS-COV-2 RT PCR EDMS Administered Medications: No medications were administered Disposition Summary: 05/15/21 18:13 Discharge Ordered Location: Home jr8 Problem: new jr8 Symptoms: have improved jr8 Condition: Stable jr8 Diagnosis - Chest pain, unspecified jr8 - Shortness of breath jr8 Followup: jr8 - With: Private Physician - When: 2 - 3 days - Reason: Recheck today's complaints, Continuance of care, Re-evaluation by your physician Discharge Instructions: - Discharge Summary Sheet jr8 - Nonspecific Chest Pain, Adult jr8 - Shortness of Breath, Adult jr8 Forms: - Medication Reconciliation Form jr8 - Thank You Letter jr8 - Antibiotic Education jr8 - Prescription Opioid Use jr8 Prescriptions: - Hydroxyzine HCl 50 mg Oral Tablet - take 1 tablet by ORAL route every 8 hours As needed; 20 tablet; Refills: 0, jr8 Product Selection Permitted Addendum: 05/18/2021 06:59 Co-signature as Attending Physician, Danie Bolivar MD I agree with the assessment and r n plan of care. Attestation: The patient's history, exam findings, diagnostics, and a summary of any interventions or procedures was reviewed in detail with Clif MURPHY. Signatures: Dispatcher [employer] EDME Danie Bolivar MD MD rn Roszak, Josh, PA PA jr8 Arpita Zheng RN RN ll1 Corrections: (The following items were deleted from the chart) 05/15 18:51 18:25 CORONAVIRUS ordered. EDME EDME
--- NOTE | 2021-05-15 18:14 | ER ---
Nurse's Notes [facility] Name: Lenore Caputo Age: 30 yrs Sex: Female : 1990 Arrival Date: 05/15/2021 Time: 15:20 Bed 13 Private MD: Diagnosis: Chest pain, unspecified;Shortness of breath Presentation: 05/15 15:23 Chief complaint: Patient states: Center or L sided CP for 1 week. SOB for 1 week. + ll1 cough. No known fever. Coronavirus screen: Vaccine status: Patient reports being unvaccinated. Client denies travel out of the [place] in the last 14 days. congestion, cough unrelated to allergies, fatigue, nausea, shortness of breath, Client presents with at least one sign or symptom that may indicate coronavirus-19. Standard/surgical mask placed on the client. Ebola Screen: Patient denies travel to an Ebola-affected area in the 21 days before illness onset. Initial Sepsis Screen: Does the patient meet any 2 criteria? No. Patient's initial sepsis screen is negative. Risk Assessment: Do you want to hurt yourself or someone else? Patient reports no desire to harm self or others. Onset of symptoms was May 09, 2021. 15:23 Method Of Arrival: Wheelchair ll1 15:23 Acuity: MARISSA 3 ll1 15:28 Initial Sepsis Screen: Does the patient have a suspected source of infection? No. ll1 Patient's initial sepsis screen is negative. Historical: - Allergies: 15:26 No Known Allergies; ll1 - PMHx: 15:26 None; ll1 - PSHx: 15:26 neck fusion; D\T\C; ll1 - Immunization history:: Adult Immunizations up to date. - Social history:: Smoking status: Patient denies any tobacco usage or history of. Screenin:13 Abuse screen: Denies threats or abuse. Denies injuries from another. Nutritional aj2 screening: No deficits noted. Tuberculosis screening: No symptoms or risk factors identified. Fall Risk None identified. Assessment: 17:13 Pain: Complains of pain in anterior aspect of left upper chest and mid-sternal area aj2 Pain does not radiate. Pain began 1 week ago. Pain: Pain currently is 8 out of 10 on a pain scale. Quality of pain is described as burning, shooting. Cardiovascular: Rhythm is sinus rhythm. Vital Signs: 15:23 Resp 17; Weight 65.32 kg; Height 4 ft. 11 in. (149.86 cm); Pain 6/10; ll1 15:28 BP 125 / 83; Pulse 80; Resp 18; Temp 97.3; Pulse Ox 100% ; ll1 17:13 BP 110 / 79; Pulse 70; Resp 18; Temp 97.3; Pulse Ox 100% on R/A; aj2 15:23 Body Mass Index 29.08 (65.32 kg, 149.86 cm) ll1 ED Course: 15:20 Patient arrived in ED. iw 15:26 Triage completed. ll1 15:27 Arm band placed on. EKG completed in triage. Results shown to MD. ll1 16:39 Patient placed in an exam room, on a stretcher. vg1 16:48 Clif Dang PA is PHCP. jr8 16:48 Danie Bolivar MD is Attending Physician. jr8 17:07 Gordo Lanza is Primary Nurse. aj2 17:13 No apparent distress. Resting quietly. aj2 17:13 Patient has correct armband on for positive identification. platform operations director on. Pulse aj2 ox on. NIBP on. 17:13 No provider procedures requiring assistance completed. Patient maintains SpO2 aj2 saturation greater than 95% on room air. 17:28 CBC with Automated Diff Sent. aj2 17:28 Liver (Hepatic) Function Sent. aj2 17:28 Magnesium Sent. aj2 17:29 NT PRO-BNP Sent. aj2 17:29 Basic Metabolic Panel Sent. aj2 17:29 TSH Sent. aj2 17:29 Basic Metabolic Panel Sent. aj2 17:29 CBC with Diff Sent. aj2 17:29 LFT's Sent. aj2 17:29 Magnesium Sent. aj2 17:29 NT PRO-BNP Sent. aj2 17:29 PT-INR Sent. aj2 17:29 Troponin (emerg Dept Use Only) Sent. aj2 17:41 XRAY Chest (1 view) In Process Unspecified. EDMS Administered Medications: No medications were administered Outcome: 18:13 Discharge ordered by . jr8 20:00 Patient left the ED. bb Signatures: Dispatcher [employer] EDMS Raquel Martinez RN RN bb Eulalia Mejias RN RN Clif Orourke PA PA jr8 Tianna Villela, RN RN vg1 Arpita Zheng, RN RN ll1 Gordo Lanza
[2021-05-15 20:05] VITALS: TEMP 97.3; O2SAT 100
[2021-05-15 20:06] VITALS: BP 110/79
--- NOTE | 2021-05-16 11:14 | EKG ---
Test Date: 2021-05-15 Test Time: 15:29:05 Higher Level Teaching Assistant: CHENTE MEASUREMENT RESULTS: Intervals: Rate: 80 MA: 180 QRSD: 80 QT: 360 QTc: 415 [place]: P: 46 MA: 180 QRS: 62 T: 68 INTERPRETIVE STATEMENTS: Normal sinus rhythm Normal ECG Compared to ECG 08/14/2020 03:09:23 No significant changes Electronically Signed On 05-16-21 11:13:07 CDT by Jason Perez
== END 2021-05-15 20:00 | disposition home or self-care (01) ==
LOC: ER 15:18
DX: R07.9 Chest pain, unspecified (principal); Z20.822 Contact with and (suspected) exposure to COVID-19
CPT/HCPCS: 36415; 71045; 80048; 80076; 83735; 83880; 84443; 84484; 85025; 85610; 93005; 99284; U0003